=== PATIENT | female | born 2000 | race Caucasian/White ===

== ENCOUNTER 2019-08-18 16:59 | Emergency (ER) | payer BC ==
--- NOTE | 2019-08-18 17:59 | ED ---
Head Injury - HPI Summary HPI Summary: 19 year old female presents with head injury today. She got hit in the head with a lacrosse stick. No loss consciousness. She states she's been dizziness and had a headache. It is not a severe headache. She denies any change in vision or photophobia. No neck pain. She admits to nausea but no vomiting. Has a history of concussion. No medical conditions. No other injury. - History Of Current Complaint Chief Complaint: EDHeadInjury Stated Complaint: HEAD INJURY PER EMS Time Seen by Provider: 08/18/19 17:41 Pain Intensity: 3 PMH/Surg Hx/FS Hx/Imm Hx Endocrine/Hematology History: Denies: Hx Anticoagulant Therapy Respiratory History: Denies: Hx Asthma - Immunization History Immunizations Up to Date: Yes Infectious Disease History: No Infectious Disease History: Denies: Traveled Outside the [place] in Last 30 Days - Family History Known Family History: Positive: Non-Contributory - Social History Alcohol Use: None Substance Use Type: Reports: None Smoking Status (MU): Never Smoked Tobacco Review of Systems Negative: Fever Negative: Chest Pain Negative: Shortness Of Breath Positive: Nausea. Negative: Vomiting Positive: Headache All Other Systems Reviewed And Are Negative: Yes Physical Exam Triage Information Reviewed: Yes Vital Signs On Initial Exam: Initial Vitals Temp Pulse Resp BP Pulse Ox 97.9 F 79 16 131/78 99 08/18/19 17:34 08/18/19 17:34 08/18/19 17:34 08/18/19 17:34 08/18/19 17:34 Vital Signs Reviewed: Yes Appearance: Positive: Well-Appearing Skin: Positive: Warm, Dry Head/Face: Positive: Normal Head/Face Inspection Eyes: Positive: Normal, EOMI, [place], Conjunctiva Clear ENT: Positive: Normal ENT inspection, Pharynx normal, TMs normal Respiratory/Lung Sounds: Positive: Clear to Auscultation, Breath Sounds Present Cardiovascular: Positive: Normal, RRR Abdomen Description: Positive: Nontender, Soft Bowel Sounds: Positive: Present Musculoskeletal: Positive: Normal Neurological: Positive: Sensory/Motor Intact, Alert, Oriented to Person Place, Time, CN Intact II-III Psychiatric: Positive: Normal Procedures - Sedation Patient Received Moderate/Deep Sedation with Procedure: No Diagnostics - Vital Signs Vital Signs Temp Pulse Resp BP Pulse Ox 08/18/19 17:34 97.9 F 79 16 131/78 99 - Laboratory Lab Statement: Any lab studies that have been ordered have been reviewed, and results considered in the medical decision making process. Head Injury Course/Dx Course Of Treatment: 19 year old female presents with head injury today. She got hit in the head with a lacrosse stick. No loss consciousness. She states she's been dizziness and had a headache. It is not a severe headache. She denies any change in vision or photophobia. No neck pain. She admits to nausea but no vomiting. Has a history of concussion. No medical conditions. No other injury. On exam has a normal neuro exam. According to [place] CT rules does not need any head imaging. Gave concussion precautions. Told to follow up with [facility]. Patient understands and agrees with plan. - Diagnoses Differential Diagnosis/HQI/PQRI: Concussion Without LOC, Contusion, Intracranial Bleed Provider Diagnoses: Head injury Discharge ED - Sign-Out/Discharge Documenting (check all that apply): Patient Departure - Discharge Plan Condition: Good Disposition: HOME Patient Education Materials: Concussion (ED) Forms: *School Release Referrals: No Primary Care Phys,NOPCP [Primary Care Provider] - Additional Instructions: follow up with [facility] within 3 days Take tyenlol or ibuprofen for pain every 6 hours modify activities as tolerated apply ice Return to ED if develop vomiting, severe headache, or any new or worsening symptoms - Billing Disposition and Condition Condition: GOOD Disposition: Home
[2019-08-18 18:26] VITALS: BP 124/68
== END 2019-08-18 18:24 | disposition home or self-care (01) ==
LOC: ED 16:59
DX: S09.90XA Unspecified injury of head, initial encounter (principal); W22.8XXA Striking against or struck by other objects, initial encounter; Y92.9 Unspecified place or not applicable
CPT/HCPCS: 99282